=== PATIENT | female | born 1960 | race Caucasian/White ===

== ENCOUNTER → 2022-07-31 14:59 | Outpatient (CLI) | payer BC, SELFPAY ==
--- NOTE | ~2022-07-31 | MM_ITS ---
EXAMINATION: MM screening renetta BI w abigail HISTORY: Screening TECHNIQUE: Craniocaudal and mediolateral oblique 3-D tomosynthesis images were obtained and synthetic 2-D images were generated. CAD analysis was submitted and interpreted. COMPARISON: No prior mammogram is available for comparison at this institution. BREAST PARENCHYMAL COMPOSITION: There are scattered areas of fibroglandular density. FINDINGS: There is no evidence of suspicious mass, calcification, or architectural distortion to sugg est malignancy in either breast. There has been no suspicious interval change. IMPRESSION: 1. No mammographic evidence of malignancy. 2. Recommend routine screening mammography in one year. BI-RADS Category 1: Negative Reviewed, dictated and finalized at location [facility].
--- NOTE | ~2022-07-31 | CT_ITS ---
EXAMINATION: CT lung screening DATE: 07/31/2022 15:24 INDICATION: Personal history of nicotine dependence TECHNIQUE: Computed tomography (CT) of the chest was performed without intravenous contrast. Addition al 3D reconstructions utilizing coronal maximum intensity projection (MIP) were performed. Automated exposure control and iterative reconstruction technique were employed. The dose-length product was 78 .29 mGy-cm. COMPARISON: 04/24/2018 FINDINGS: Mild emphysema. Again seen are a few 3 mm or smaller pulmonary nodules at the bilateral upper lobes, one of which in the right upper lobe is calcified consistent with old granulomatous disease. No pneum onia, pulmonary edema or pleural effusion. Heart size is normal. Atherosclerotic coronary artery calc ification. No pericardial effusion. No interval change in a few mildly prominent but still normal-siz ed mediastinal lymph nodes. Calcified right hilar and mediastinal lymph nodes along with small hepati c and splenic calcifications consistent with old granulomatous disease. Subtle ill-defined 2 cm low-a ttenuation lesion in the caudal right hepatic lobe which appears to represent some interval enlargeme nt of a previously 1.7 cm hemangioma with peripheral puddling of contrast seen on CT dated 12/19/2007. Moderate to severe thoracic spondylosis. IMPRESSION: 1. Lung-RADS category 2: Benign appearance or behavior. Continue annual screening with noncontrast lo w-dose chest CT in 12 months. Reviewed, dictated and finalized at location [facility]. IMPRESSION: 1. Lung-RADS category 2: Benign appearance or behavior. Continue annual screeni ng with noncontrast low-dose chest CT in 12 months.
== END ==
PROVIDERS: PCP Family Medicine Adolescent Medicine; Visit Provider Family Medicine Adolescent Medicine
DX: Z12.2 Encounter for screening for malignant neoplasm of respiratory organs (principal); Z12.31 Encounter for screening mammogram for malignant neoplasm of breast; F17.210 Nicotine dependence, cigarettes, uncomplicated
CPT/HCPCS: 71271; 77063; 77067